=== PATIENT | female | born 1960 | race Two or more races ===

== ENCOUNTER 2018-01-07 14:57 | Outpatient (CLI) | payer OTHER ==
[~2018-01-07 14:57] MED LIST: GLIMEPIRIDE4 MG; METFORMIN HCL1000 MG
== END 2018-01-07 15:30 | disposition home or self-care (01) ==
LOC: MAMO-SONO 14:57
DX: Z12.31 Encounter for screening mammogram for malignant neoplasm of breast (principal)

== ENCOUNTER 2019-05-10 13:56 | Outpatient (CLI) | payer OTHER | END 2019-05-10 14:06 | disposition home or self-care (01) | LOC: MAMO-SONO 13:56 | DX: Z12.31 Encounter for screening mammogram for malignant neoplasm of breast (principal) ==

== ENCOUNTER 2019-06-15 08:53 | Emergency (ER) | payer OTHER ==
[~2019-06-15] VITALS: Ht 162.6 cm; Wt 75.3 kg
== END 2019-06-15 12:00 | disposition home or self-care (01) ==
LOC: ER 08:53
DX: M25.561 Pain in right knee (principal)

== ENCOUNTER → 2020-09-12 07:05 | Outpatient (CLI) | payer OTHER | END | disposition home or self-care (01) | LOC: LAB 07:05 | DX: Z20.828 Contact with and (suspected) exposure to other viral communicable diseases (principal); E11.9 Type 2 diabetes mellitus without complications; E78.49 Other hyperlipidemia; I10 Essential (primary) hypertension; E03.8 Other specified hypothyroidism ==

== ENCOUNTER 2021-02-05 08:54 | Outpatient (CLI) | payer OTHER | END 2021-02-05 09:04 | disposition home or self-care (01) | LOC: MAMO-SONO 08:54 | DX: Z12.31 Encounter for screening mammogram for malignant neoplasm of breast (principal) ==

== ENCOUNTER 2022-08-19 11:52 | Outpatient (CLI) | payer OTHER | END 2022-08-19 11:58 | disposition home or self-care (01) | LOC: MAMO-SONO 11:52 | DX: Z12.31 Encounter for screening mammogram for malignant neoplasm of breast (principal) ==

== ENCOUNTER 2024-02-02 10:41 | Outpatient (CLI) | payer OTHER | END 2024-02-02 10:48 | disposition home or self-care (01) | LOC: MAMO-SONO 10:41 | PROVIDERS: ATTEND Internal Medicine | DX: Z12.39 Encounter for other screening for malignant neoplasm of breast (principal); N60.39 Fibrosclerosis of unspecified breast ==

== ENCOUNTER 2025-02-21 07:16 | Outpatient (CLI) | payer OTHER | END 2025-02-21 07:18 | disposition home or self-care (01) | LOC: MAMO-SONO 07:16 | DX: N60.39 Fibrosclerosis of unspecified breast (principal); Z12.31 Encounter for screening mammogram for malignant neoplasm of breast ==

== ENCOUNTER 2025-08-18 09:01 | Outpatient (CLI) | payer OTHER | END 2025-08-18 13:18 | disposition home or self-care (01) | LOC: RAD 09:01 | DX: J06.9 Acute upper respiratory infection, unspecified (principal); J22 Unspecified acute lower respiratory infection; R07.9 Chest pain, unspecified ==

== ENCOUNTER 2025-09-18 07:08 | Emergency (ER) | payer OTHER ==
[~2025-09-18] VITALS: Ht 160 cm; Wt 74.4 kg
== END 2025-09-18 09:58 | disposition home or self-care (01) ==
LOC: ER 07:09
DX: M22.2X2 Patellofemoral disorders, left knee (principal); M17.12 Unilateral primary osteoarthritis, left knee; E11.9 Type 2 diabetes mellitus without complications; Z79.84 Long term (current) use of oral hypoglycemic drugs